=== PATIENT | female | born 1940 | race Caucasian/White ===

== ENCOUNTER → 2017-04-08 | Outpatient (CLI) | payer OTHER | LOC: CIMAGING 11:56 | PROVIDERS: ATTEND Family Medicine | DX: M54.9 Dorsalgia, unspecified (principal); R91.8 Other nonspecific abnormal finding of lung field | CPT/HCPCS: 72070-PO ==

== ENCOUNTER → 2017-04-10 | Outpatient (CLI) | payer OTHER | LOC: CIMAGING 13:35 | PROVIDERS: ATTEND Family Medicine | DX: R91.8 Other nonspecific abnormal finding of lung field (principal) | CPT/HCPCS: 71020-PO ==

== ENCOUNTER → 2017-04-16 | Outpatient (CLI) | payer OTHER ==
[~2017-04-16] MED LIST: IOPAMIDOL (ISOVUE-300) 100 ML BTL ONE
== END ==
LOC: CIMAGING 09:54
PROVIDERS: ATTEND Family Medicine
DX: R91.8 Other nonspecific abnormal finding of lung field (principal); J90 Pleural effusion, not elsewhere classified; E04.1 Nontoxic single thyroid nodule; M89.8X8 Other specified disorders of bone, other site
CPT/HCPCS: 71260-PO; Q9967

== ENCOUNTER 2017-11-22 10:50 | Inpatient (IN) | payer OTHER ==
--- NOTE | 2017-11-22 10:56 | EDPHY ---
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 She arrives by ambulance noting that she has been unable to bear weight has been 6 piercing intractable pain to this area. She was scheduled to have a 4th radiation therapy treatment yesterday however was unable to make it down stairs of her home. She is here with her . She denies new/acute trauma. Denies discoloration. Denies malaise or flu-like symptoms. PRIMARY CARE PROVIDER: REVIEW OF SYSTEMS: A ten point review of systems was performed and is negative with the exception of the items mentioned in the HPI PAST MEDICAL & SURGICAL HISTORY: Adenocarcinoma right lung with metastases SOCIAL HISTORY: Nonsmoker lives with . Splits her time between [place], [place] and [place], [place] PHYSICAL EXAM (Prior to examination, patient consented to physical exam, hands were washed and my usual and customary physical exam procedures followed) 1) GENERAL: Well-developed, well-nourished, alert and oriented. Appears nontoxic 2) HEAD: Normocephalic, atraumatic 3) HEENT: Pupils equal, round, reactive to light bilaterally. Sclera anicteric. 4) NECK: Full range of motion, no meningeal signs. 5) LUNGS: Clear auscultation bilaterally, no wheezes, no rhonchi, no retractions. 6) HEART: Regular rate and rhythm, no murmur, no heave, no gallop. 7) ABDOMEN: No guarding, no rebound, no focal tenderness, negative McBurney's, negative Valero's, negative Rovsing's, negative peritoneal sign, 8) MUSCULOSKELETAL: Left lower extremity: No shortening no malrotation. Tender to palpation left inguinal region reproducible with range of motion of the left lower extremity. Soft compartments. Skin is intact no signs of infection or cellulitis. Fentanyl patch in place. Distal DP PT pulses present and brisk. Soft compartments. Moving all extremities, no focal areas of tenderness, no obvious trauma. No peripheral edema or discoloration. 9) BACK: No CVA tenderness, no midline vertebral tenderness, no fluctuance, no step-off, no obvious trauma, no visual or palpable abnormality. 10) SKIN: No rash, no petechiae. 11) Psychiatric: Patient is oriented X 3, there is no agitation. DIFFERENTIAL DIAGNOSIS: In no particular include but limited to pathologic fracture, chronic pain of malignancy, septic arthritis Constitutional: Initial Vital Signs Temperature (C) 36.8 C 11/22/17 10:50 Heart Rate 87 11/22/17 10:50 Respiratory Rate 16 11/22/17 10:50 Blood Pressure 181/78 H 11/22/17 10:50 O2 Sat (%) 94 11/22/17 10:50 O2 Delivery Mode Room Air O2 (L/minute) 2 Allergies/Adverse Reactions: No Known Allergies Allergy (Unverified 03/25/13 10:02) Home Medications: Medication Instructions Recorded Dexamethasone [Decadron 4 MG (*)] 4 mg PO BID 11/22/17 HYDROcodone/APAP 10/325 [[place] 0.5 tab PO Q4 PRN 11/22/17 10/325 (*)] fentaNYL [Duragesic 25 MCG Patch 25 mcg TD Q72H 11/22/17 (*)] Medical Decision Making - Diagnostics Imaging Results: Imaging Impressions Hip X-Ray 11/22/17 11:07 Impression: Oblique nondisplaced left femoral neck fracture, which may be pathologic. Metastatic lesion right superior pubic ramus. Images reviewed myself ED Course/Re-evaluation: 10:55 a.m.: Patient greeted on arrival by myself and nursing staff. Patient has pain to the left inguinal region. History of radiation therapy to same location and metastases same location. Will obtain x-ray to evaluate for acute osseous abnormality. Denies trauma history. She is unable to bear weight. Anticipate likely hospitalization for pain control. Care of patient under supervision of secondary supervising physician Dr Ocampo with whom I discussed case 11:45 a.m.: Consultation with patient's oncologist Dr. Srinivasan who will consult 11:51 a.m.: Consultation with hospitalistJoanna, admit to Dr. Cesar Easton 12:06 p.m.: Consultation with on-call orthopedics Dr. Pedro Stokes who will consult - Data Points Laboratory Results: Laboratory Results 11/22/17 11:20 11/22/17 11:20 11/22/17 11/22/17 11/22/17 11:20 11:20 11:20 WBC 12.00 10^3/uL H 10^3/uL (3.80-9.50) RBC 4.47 10^6/uL 10^6/uL (4.18-5.33) Hgb 13.2 g/dL g/dL (12.6-16.3) Hct 38.7 % % (38.0-47.0) MCV 86.6 fL fL (81.5-99.8) MCH 29.5 pg pg (27.9-34.1) MCHC 34.1 g/dL g/dL (32.4-36.7) RDW 14.3 % % (11.5-15.2) Plt Count 265 10^3/uL 10^3/uL (150-400) MPV 11.0 fL fL (8.7-11.7) Neut % (Auto) 91.5 % H % (39.3-74.2) Lymph % (Auto) 3.1 % L % (15.0-45.0) [place] % (Auto) 4.3 % L % (4.5-13.0) Eos % (Auto) 0.1 % L % (0.6-7.6) Baso % (Auto) 0.2 % L % (0.3-1.7) Nucleat RBC Rel Count 0.0 % % (0.0-0.2) Absolute Neuts (auto) 10.98 10^3/uL H 10^3/uL (1.70-6.50) Absolute Lymphs (auto) 0.37 10^3/uL L 10^3/uL (1.00-3.00) Absolute Monos (auto) 0.52 10^3/uL 10^3/uL (0.30-0.80) Absolute Eos (auto) 0.01 10^3/uL L 10^3/uL (0.03-0.40) Absolute Basos (auto) 0.02 10^3/uL 10^3/uL (0.02-0.10) Absolute Nucleated RBC 0.00 10^3/uL 10^3/uL (0-0.01) Immature Gran % 0.8 % % (0.0-1.1) Immature Gran # 0.10 10^3/uL 10^3/uL (0.00-0.10) RBC/WBC/PLT Morphology TNP Platelet Estimate TNP PT 13.3 SEC SEC (12.0-15.0) INR 0.99 (0.83-1.16) APTT 22.7 SEC L SEC (23.0-38.0) Sodium 142 mEq/L mEq/L (135-145) Potassium 3.8 mEq/L mEq/L (3.3-5.0) Chloride 108 mEq/L mEq/L (97-110) Carbon Dioxide 23 mEq/l mEq/l (22-31) Anion Gap 11 mEq/L mEq/L (8-16) BUN 17 mg/dL mg/dL (7-23) Creatinine 0.5 mg/dL L mg/dL (0.6-1.0) Estimated GFR > 60 Glucose 106 mg/dL H mg/dL (70-100) Calcium 9.6 mg/dL mg/dL (8.5-10.4) Medications Given: Discontinued Medications Hydromorphone HCl (Dilaudid) 1 mg IVP EDNOW ONE Stop: 11/22/17 11:24 Last Admin: 11/22/17 11:37 Dose: 1 mg Ondansetron HCl (Zofran) 4 mg IVP EDNOW ONE Stop: 11/22/17 11:24 Last Admin: 11/22/17 11:36 Dose: 4 mg Departure - Departure Disposition: [facility] Inpatient Acute Clinical Impression: Pathologic fracture of neck of left femur Qualifiers: Encounter type: initial encounter Qualified Code(s): M84.452A - Pathological fracture, left femur, initial encounter for fracture Condition: Fair
[2017-11-22] MEDS ORDERED: ONDANSETRON 4 MG/2 ML VIAL IVP ONE (11:23)
[2017-11-22] MEDS ORDERED: HYDROmorphONE/DILAUDID 1 MG/ML INJ IVP ONE (11:23)
[2017-11-22 12:21] LABS: PLATELET COUNT 265 10^3/uL (150-400)
[2017-11-22 12:32] LABS: INR 0.99 (0.83-1.16); PROTIME(PATIENT) 13.3 SEC (12.0-15.0)
[2017-11-22] MEDS ORDERED: ONDANSETRON DISINTEGRATING 4 MG TAB PO PRN (13:41)
[2017-11-22] MEDS ORDERED: ACETAMINOPHEN 325 MG TAB PO PRN (13:41)
[2017-11-22] MEDS ORDERED: ONDANSETRON 4 MG/2 ML VIAL IVP PRN (13:41)
[2017-11-22] MEDS ORDERED: HYDROmorphONE/DILAUDID 1 MG/ML INJ IVP PRN (13:41)
[2017-11-22] MEDS ORDERED: fentaNYL 25 MCG PATCH TD SCH (13:45)
[2017-11-22] MEDS ORDERED: NS 1,000 ML IV SCH (13:45)
--- NOTE | 2017-11-22 17:08 | GHP ---
[f rep st] HISTORY AND PHYSICAL DATE OF ADMISSION: 11/22/2017 ONCOLOGIST: Dr. Alexx Srinivasan PRIMARY CARE: Based in [place], [place]. CHIEF COMPLAINT: Left femoral neck fracture. HISTORY OF PRESENT ILLNESS: Ms. Ahn is a pleasant 77-year-old female with a past medical history of lung adenocarcinoma with metastatic disease, who had recently been undergoing radiation to metasta tic lesions in the left hip area. She presented to the [facility] emergency room wit h complaints of left hip pain. Imaging revealed the presence of a left femoral neck fracture. Consu ltation was made with patient's oncologist, Dr. Srinivasan, as well as Dr. Stokes with Orthopedic Sur[facility]. I reviewed the case with Dr. Stokes and tentative plan is for surgical intervention tomorrow. The patient has not had any complaints of chest pains or difficulty breathing, and really no other ph ysical complaints at this time. She primarily lives in [place] approximately 6 months out of the [facility]. Her primary home is in [place], [place]. PAST MEDICAL HISTORY: 1. Non-small cell lung carcinoma, adenocarcinoma, metastatic. 2. Dementia. PAST SURGICAL HISTORY: Esophageal dilation. HOME MEDICATIONS: 1. Fentanyl patch 25 mcg patch every 72 hours. 2. Hydrocodone/acetaminophen 10/325 one tablet every 4 hours as needed. 3. Dexamethasone 4 mg twice a day. FAMILY HISTORY: Mother is . She from dementia. Father is also . He from cardiac related complications. SOCIAL HISTORY: Patient is a lifelong nonsmoker. She is currently . She has 1 son and 1 raman ghter. Power of title attorney would be her . Code status was reviewed during this admission, and the patient is a do not attempt resuscitation cod e status. REVIEW OF SYSTEMS: CONSTITUTIONAL: No complaints of any fevers or chills. ENT: No recent upper re spiratory illnesses. CARDIOVASCULAR: No complaints of any chest pains, palpitations, or syncopal ep isodes. RESPIRATORY: No complaints of any shortness of breath or productive cough. GASTROINTESTINA L: No nausea, vomiting, diarrhea, or constipation. GENITOURINARY: No report of any difficulty with urination. NEUROLOGIC: No complaints of any headaches or focal weakness. HEMATOLOGIC: No history of any prior deep vein thrombosis or pulmonary embolism. PSYCHIATRIC: No history of anxiety or dep ression. ENDOCRINE: No polyuria or heat intolerance. SKIN: No new skin rashes reported. MUSCULOS KELETAL: Other than the left hip pain, no other joint pain complaints. PHYSICAL EXAM: VITAL SIGNS: Temperature 36.7, blood pressure is 179/82, and patient's repor ts she normally has low normal blood pressures. Heart rate 79, respirations 12, satting 98% on 2 L n ran cannula. GENERAL: Patient appears comfortable. She is awake, alert, conversant, in no acute d istress. HEENT: Extraocular movements appear intact. No scleral icterus is noted. NECK: Supple. No adenopathy appreciated. No thyroid enlargement noted. CHEST: Clear on auscultation with normal respiratory effort. HEART: Regular rate and rhythm. No murmurs are appreciated. ABDOMEN: Soft, nontender, nondistended. : No Nelson catheter in place. EXTREMITIES: No significant pitting quoc a. MUSCULOSKELETAL: No calf pain with palpation. NEUROLOGIC: Cranial nerves 2-12 appear grossly i ntact with 5/5 strength in upper extremities. Lower extremity strength testing deferred in light of fracture. LABORATORY DATA: White blood cell count is 12, hemoglobin 13, platelets pending. Sodium 142, potass ium 3.8, chloride 108, bicarb is 23, BUN 17, creatinine 0.5, glucose 107. INR 0.99, PTT is 22. ASSESSMENT/PLAN: 1. Left hip pain, currently appears well controlled if she is immobile. We do have her fentanyl pat ch continued. We will schedule hydrocodone/acetaminophen on top of that as needed. We do have IV Di laudid as well for any severe or breakthrough pain. 2. Left femoral neck fracture. Dr. Stokes with Orthopedic Surgery has been consulted. I touched base with him over the phone today and tentative plan is for surgical intervention tomorrow. I have recommended a dose of Lovenox now with the notation not to administer after 2300 tonight. 3. Leukocytosis, possibly reactive. Monitor for any fevers. We will plan on rechecking tomorrow mo rning. 4. Non-small cell lung carcinoma. This is of the right lung and widely metastatic. Biopsy shows an adenocarcinoma. The patient just recently started seeing Dr. Srinivasan while here in [place] where she lives part of the year. The tentative plan for treatment has been radiation therapy. She has decli laly chemotherapy. I reviewed the admission today with Dr. Srinivasan as well. 5. Deep venous thrombosis prophylaxis. Heparin is detailed above. 6. Disposition: I will admit her under inpatient status considering the anticipated surgery and nee d for IV pain control. /[id number]/MODL
--- NOTE | 2017-11-22 17:13 | GCON ---
[f rep st] CONSULTATION MEDICAL ONCOLOGY CONSULTATION. The patient is a very pleasant 77-year-old female who lives in [place] but babin in [place], whom I saw for the first time approximately 2 weeks ago. To review, late in 2016, she developed a dry cough and was found to have a right pleural effusion. Thoracentesis showed malignant cells consistent wit h an adenocarcinoma of the lung, and she was found to have a right infrahilar mass consistent with a primary. There was mild uptake in mediastinal nodes and there were multiple hypermetabolic osseous m etastases, the most worrisome at T9 where there was extensive soft tissue and epidural component. Roberto Carlos ma was treated with radiotherapy in [place] to T8, T11, left scapula, right pubis and hip, and left acet abulum. This seemed to control her pain. However, when she came to [place], she noted increasing p ain. A PET scan as of 10/30/2017 showed increasing osseous metastases in the skull, thorax, lumbar s pine, left shoulder, ribs, sacrum, acetabulum, and proximal femurs. Her malignant pleural cells did not have an EGFR ALK mutation. She has been receiving monthly Zometa. She has been very clear that she did not desire any more aggressive therapy. She did see Dr. Alexx Weiss of Radiation Therapy , who started palliative radiotherapy to her left hip and acetabulum about 3 days ago. However, she has had increasing and severe hip pain. She came to the emergency room today, where a plain film juan wed an oblique nondisplaced left femoral neck fracture, possibly pathologic. She was hospitalized fo r further evaluation. PAST MEDICAL HISTORY: She has otherwise been quite healthy. REVIEW OF SYSTEMS: Primarily positive for hip pain. She has some anorexia. She is postmenopausal. She is accompanied by her . She has a daughter who is a physician in [facility]. PHYSICAL EXAMINATION: VITAL SIGNS: Blood pressure 179/82, temperature 98.1. HEENT: She is not ict jennifer. LYMPH NODES: I detect no cervical or supraclavicular adenopathy. LUNGS: Lung sounds are dim inished. CARDIAC: Exam is unremarkable. ABDOMEN: Benign. EXTREMITIES: She complains of pain in her left hip area. Extremities show no edema. NEUROLOGIC: She is pleasant but has some deficits in terms of short-term memory. LABORATORY DATA: White count is 12,000, neutrophils 91.5%. Basic chemistry panel is unremarkable. MEDICATIONS ON ADMISSION: Include a fentanyl patch 25 mcg/h, p.r.n. Dilaudid. IMPRESSION: Patient with metastatic lung carcinoma, presenting with a pathologic fracture of the lef t femoral neck. She has been hospitalized. Orthopedic consultation has been obtained, and we will d iscuss treatment as noted. She does not desire aggressive systemic treatment of her lung carcinoma. Our service will follow with you. /[id number]/MODL
--- NOTE | 2017-11-22 17:25 | PDMN ---
Medical Necessity Medical necessity: C/M review: patient meets INPT criteria under [facility] Musculoskeletal disease GRG (Pathological fracture, left femur, initial encounter for fracture): Acute left femoral neck fracture seen on xray, left hip pain, leukocytosis, likely reactive, WBC 12.00 requiring Oncology consult, Orthopedic consult, planned tentative 11/23/2017 surgical intervention, ongoing IV fluids, pain management - fentanyl patch continues, oral Tylenol and IV Dilaudid as needed, comorbid non-small cell lung carcinoma of the right lung and is widely metastatic, including metastatic lesions in left hip region recently treated with radiation therapy, history of dementia. MD anticipates > 2 MN LOS for ongoing med nec for eval and [place] of above. Patient is Medicare Advantage which follows guidelines CMS puts forth.
[2017-11-22] MEDS: HYDROCODONE/APAP 5/325 TAB PO PRN (20:55)
[2017-11-22] MEDS: DEXAMETHASONE 4 MG TAB PO SCH (20:56)
[2017-11-22] MEDS: HEPARIN 5,000 UNIT/0.5 ML INJ SC SCH (20:56)
--- NOTE | 2017-11-22 22:49 | GCON ---
[f rep st] CONSULTATION DATE OF CONSULTATION: 11/22/2017 REASON FOR CONSULTATION: Pathologic left femoral neck fracture. HPI: Luma is a 77-year-old female, who presented today in the emergency room with increasing le ft hip pain and difficulty bearing weight. She has lung adenocarcinoma and has recently returned to [place] about 2 weeks ago. She spends most of the year in [place], [place] and then babin here in [facility]. She is here with her . She has seen Dr. Srinivasan from Oncology who was following her al srinivas and they are not doing any systemic therapy other than radiation therapy for pain control. She h as multiple metastatic sites of the cancer. On bone scan she does have a left acetabular fracture bu t now appears to have a left femoral neck lesion, however, on today's x-ray she does have a lucency c onsistent with metastatic lesion. PRIOR MEDICAL HISTORY: 1. Adenocarcinoma metastatic lung. 2. Early dementia. PRIOR SURGICAL HISTORY: None. HOME MEDICATIONS: Fentanyl patch, Hoffman 10/325, dexamethasone. SOCIAL HISTORY: She is . Two children. Her daughter is a family physician in [place]. he does not smoke. Does not drink alcohol. REVIEW OF SYSTEMS: Other than left hip pain. No shortness of breath or chest pain. PHYSICAL EXAM: VITAL SIGNS: Blood pressure 170/61, heart rate 76, respiratory rate 16, temperature 36.6, oxygen saturation 98% on 2 L. GENERAL: Alert and oriented x3. is at her bedside. HE ENT: Normocephalic, atraumatic. Extraocular muscles intact. NECK: Supple. There is no lymphadeno doron. No JVD. CHEST: Clear to auscultation. HEART: Regular rate and rhythm. ABDOMEN: Soft, nontender, nondistended. EXTREMITIES: Exam focuse d on left hip. She has pain with any movement, both active and passively hip or upper leg. Lower le g compartment is soft without tenderness. She has 1+ dorsalis pedis, posterior tibial pulses. Ankle dorsiflexion plantar flexion is good at 4+/5. X-RAYS: 2 views of the hip taken earlier today at the hospital show a left femoral neck fracture. T here appears to be a lytic lesion in the right superior rami as well. ASSESSMENT: Pathologic fracture left femoral neck. PLAN: Francesca and her spent 15 minutes [id number] time reviewing treatment options . I think the best course of action would be a long femoral intramedullary nail to fix the femoral n ying fracture as well as stabilize the remainder of the femur. This was described in detail with her. I also reviewed this on the phone with their daughter. They have agreed that they want to proceed with this. We will plan on surgery in the morning. We will keep her n.p.o. after midnight tonight. She is scheduled to get a dose of Lovenox, and that is fine, we will do that tomorrow morning. We w ill continue the home medications for pain control which seems to be working. All their questions we re answered. Our plan will be for surgery in the morning. /[id number]/MODL
[2017-11-23 04:30] LABS: PLATELET COUNT 207 10^3/uL (150-400)
[2017-11-23] MEDS: HEPARIN 5,000 UNIT/0.5 ML INJ SC SCH (04:51)
--- NOTE | 2017-11-23 07:04 | PDANEPAE ---
ANE History of Present Illness 77 yo female with non small cell adenocarcinoma of the lung with L hip bone mets presents with pathologic fracture of L hip. ANE Past Medical History - Cardiovascular History Hx Hypertension: No Hx Arrhythmias: No Hx Chest Pain: No Hx Coronary Artery / Peripheral Vascular Disease: No Hx CHF / Valvular Disease: No Hx Palpitations: No - Pulmonary History Hx COPD: No Hx Asthma/Reactive Airway Disease: No Hx Oxygen in Use at Home: No Hx Sleep Apnea: No Sleep Apnea Screening Result - Last Documented: Negative - Endocrine History Hx Diabetes: No Hypothyroid: No Obesity: no - Renal History Hx Renal Disorders: No - Liver History Hx Hepatic Disorders: No - Cancer History Hx Cancer: Yes Cancer History Comment: adenocarcinoma of lung with bony mets - GI History Hx Gastrointestinal Disorders: Yes Gastrointestinal History Comment: esophageal stricture s/p dilation - Other Health History Other Health History: DNR status - Chronic Pain History Chronic Pain: Yes (on Fentanyl patch + Glennie) - Surgical History Prior Surgeries: esophageal dilation ANE Review of Systems Review of Systems: - Systems Constitutional: Reports: no symptoms Muscolosketal: Reports: joint pain (L hip/groin pain) ANE Patient History - Allergies Allergies/Adverse Reactions: No Known Allergies Allergy (Unverified 03/25/13 10:02) - Home Medications Home Medications: Dexamethasone [Decadron 4 MG (*)] 4 mg PO BID 11/22/17 [Last Taken Unknown] HYDROcodone/APAP 10/325 [Glennie 10/325 (*)] 0.5 tab PO Q4 PRN 11/22/17 [Last Taken Unknown] fentaNYL [Duragesic 25 MCG Patch (*)] 25 mcg TD Q72H 11/22/17 [Last Taken ] - NPO status NPO Since - Liquids (Date): 11/23/17 NPO Since - Liquids (Time): 00:00 NPO Since - Solids (Date): 11/23/17 NPO Since - Solids (Time): 00:00 - Anes Hx Anes Hx: no prior problems - Smoking Hx Smoking Status: Former smoker Marijuana use: No - Alcohol Use Alcohol Use: None - Family Anes Hx Family Anes Hx: neg - N/A ANE Labs/Vital Signs - Labs Result Diagrams: 11/23/17 04:00 11/23/17 04:00 - Vital Signs Blood Pressure: 160/81 Heart Rate: 70 Respiratory Rate: 14 O2 Sat (%): 95 Height: 160.02 cm Weight: 45.569 kg ANE Physical Exam - Airway Neck exam: decreased ROM Mallampati Score: Class 2 Mouth exam: normal dental/mouth exam - Pulmonary Pulmonary: clear to auscultation - Cardiovascular Cardiovascular: regular rate and rhythym - ASA Status ASA Status: IV ANE Anesthesia Plan Anesthesia Plan: general endotracheal anesthesia
[2017-11-23] MEDS ORDERED: CEFAZOLIN 1 GM/DEXTROSE/50 ML BAG IV ONE (08:07)
[2017-11-23] MEDS ORDERED: fentaNYL 100 MCG/2 ML INJ ONE ×4 (08:12→10:43)
[2017-11-23] MEDS ORDERED: LIDOCAINE 2% 100 MG/5 ML SYR ONE (08:12)
[2017-11-23] MEDS ORDERED: DEXAMETHASONE 4 MG/ML VIAL ONE (08:12)
[2017-11-23] MEDS ORDERED: ROCURONIUM 100 MG/10 ML VIAL ONE (08:12)
[2017-11-23] MEDS ORDERED: PROPOFOL/EMULSION 500 MG/50 ML BOTTLE IV ONE (08:13)
[2017-11-23] MEDS ORDERED: fentaNYL 25 MCG PATCH TD SCH (08:15)
[2017-11-23] MEDS ORDERED: fentaNYL 25 MCG PATCH TD ONE (08:30)
[2017-11-23] MEDS: BUPIVACAINE 0.5% 30 ML SDV ONE ×2 (09:06→10:13)
[2017-11-23] MEDS: EPINEPHrine 1 MG/ML INJ ONE ×2 (09:06→10:13)
[2017-11-23] MEDS ORDERED: ONDANSETRON 4 MG/2 ML VIAL ONE (09:23)
[2017-11-23] MEDS ORDERED: LR 500 ML IV PRN (09:45)
[2017-11-23] MEDS ORDERED: NALOXONE HCL 0.4 MG/ML INJ IVP PRN (09:45)
[2017-11-23] MEDS ORDERED: oxyCODONE IR 5 MG TAB PO PRN (09:45)
[2017-11-23] MEDS ORDERED: PROMETHAZINE HCL 25 MG/ML INJ IVP PRN (09:45)
--- NOTE | 2017-11-23 10:07 | POSTOPPROG ---
Post Op Note Date of Operation: 11/23/17 Surgeon: Pedro Stokes Anesthesiologist: carlo Anesthesia: GET(General Endotracheal) Pre-op Diagnosis: pathologic fx left femoral neck fracture Post-op Diagnosis: same Procedure: lt IMN femur Inf/Abcess present in the surg proc area at time of surgery?: No EBL: 50-100 Complications: none
--- NOTE | 2017-11-23 10:10 | ASMTCMCOM ---
CM Note CM Note Notes: Chart reviewed. 77 year old female with history of Lung cancer and metastatic disease admitted via ED with pathological fracture of left femoral neck. She is to undergo surgical pinning today. Needs TBD at this time. CM to follow. Plan : TBD Date Signed: 11/23/2017 10:09 AM Electronically Signed By:Berna Rodriguez RN
--- NOTE | 2017-11-23 10:13 | POSTANESTH ---
Post Anesthetic Evaluation Cardiovascular Status: Similar to Pre-Op Cond, Other, See Comment (Pt has persistently high BP, though no h/o HTN reported) Respiratory Status: Normal, Stable Level of Consciousness/Mental Status: Can Participate in Eval, Mildly Sleepy, Arousable Pain Control: Adequate, Prn Tx Ordered (Small amount of pain in hip at this time per pt.) Nausea/Vomiting Control: Adequate, Prn Tx Ordered Complications Possibly Related to Anesthesia: None Noted
[2017-11-23] MEDS: fentaNYL 100 MCG/2 ML INJ IVP PRN ×4 (10:27→11:03)
[2017-11-23] MEDS ORDERED: oxyCODONE IR 5 MG TAB ONE (10:42)
--- NOTE | 2017-11-23 11:13 | SOAPPROG ---
SOAP Progress Note Assessment/Plan: Assessment: 1. Lung cancer metastatic 2. Pathologic fx l hip, in surgery this am Plan:Rehab post surgery, possibly resume RT outpt 11/23/17 11:11 Objective: Vital Signs Temp Pulse Resp BP Pulse Ox 97.0 F 70 23 H 189/96 H 99 11/23/17 11:07 11/23/17 08:07 11/23/17 11:02 11/23/17 11:02 11/23/17 11:02 Laboratory Results 11/23/17 04:00 11/23/17 04:00 11/22/17 11/23/17 11/24/17 05:59 05:59 05:59 Intake Total 1825 150 Output Total 1270 300 Balance 555 -150 PT 13.3 SEC (12.0-15.0) 11/22/17 11:20 INR 0.99 (0.83-1.16) 11/22/17 11:20 ICD10 Worksheet Patient Problems: Problems Problem Status Onset Pathologic fracture of neck of left femur Acute
--- NOTE | 2017-11-23 12:07 | GOP ---
[f rep st] OPERATIVE REPORT DATE OF OPERATION: 11/23/2017 SURGEON: Pedro Stokes MD ANESTHESIA: General. ANESTHESIOLOGIST: Dr. Sauer. PREOPERATIVE DIAGNOSIS: Pathologic fracture, left femoral neck. POSTOPERATIVE DIAGNOSIS: Pathologic fracture, left femoral neck. PROCEDURE PERFORMED: Intramedullary nail left femur. FINDINGS: ESTIMATED BLOOD LOSS: Minimal. INDICATIONS: The patient is a 77-year-old female with metastatic lung cancer who developed a patholo gic fracture of left femoral neck. She was admitted through the emergency department. Decision was made to proceed with intramedullary nailing of the femur to stabilize both the fracture and the remai nder of the femur. DESCRIPTION OF PROCEDURE: After appropriate informed consent was obtained, patient was taken to the operating room, placed supine on the operating table. Time-out was performed. Patient was identifie d correct site was identified and matched to the radiographs available in room. She received a gram Ancef preoperatively. Following the induction of general endotracheal tube anesthesia, she was posit ioned on the fracture table with all bony prominences well padded. Left lower extremity was placed i n a traction boot. Right lower extremity was placed in a well-padded well leg ardon. Fluoroscopy w as brought in. Fracture was not displaced. We then prepped the left hip in the usual sterile fashio n. Using our starting pin, I got our starting position on the tip of the greater trochanter. Drilled th at into the femoral canal and then used our starting reamer to enter the femoral canal. We then ream ed up to a size 12-1/2 and placed an 11 x 400 nail. This was tapped into place. This position was c onfirmed with AP and lateral fluoroscopic imaging. Using the extramedullary guide, we drilled our guide pin into the head and neck. I confirmed its pos ition on both AP and lateral fluoroscopic images. Drilled both cortices and then placed our spiral b lade, tapped it into place. Then, using perfect [place] technique using fluoroscopy, we placed 1 dist al locking screw with good bony purchase. Final imaging was obtained, which showed satisfactory redu ction of the fracture and positioning of the hardware. Wounds were all irrigated. The wound was closed with 0 Vicryl, 2-0 Vicryl, and katerina. Sterile marlon ssing was applied. The patient was awakened from anesthesia, taken to the recovery room in satisfact ory condition. There were no immediate intraoperative complications. COMPLICATIONS: None. DRAINS: None. IMPLANTS USED: Synthes long TFN nail, 12 x 400. /[id number]/MODL
[2017-11-23] MEDS: D5W 1/2 NS W/ 20 KCl/L 1,000 ML IV SCH ×2 (12:21→21:42)
[2017-11-23] MEDS: DEXAMETHASONE 4 MG TAB PO SCH ×2 (12:21→20:45)
[2017-11-23] MEDS: HYDROCODONE/APAP 5/325 TAB PO PRN ×2 (12:23→20:44)
[2017-11-23] MEDS ORDERED: hydrALAZINE 20 MG/ML VIAL IVP PRN (13:22)
--- NOTE | 2017-11-23 13:37 | HOSPPROG ---
Hospitalist Progress Note Assessment/Plan: Subjective Follow-up on elevated blood pressure readings and left hip fracture. Patient had surgery this morning for her left hip fracture. No postoperative complications other than blood pressures were running high. Her states her blood pressures typically run with systolics in the 120s to 130s. I assured them that I would data as needed IV pain medication for systolic blood pressures over 150. We discussed that we would do this for now rather than starting any daily oral antihypertensives. Pain seems reasonably well controlled postoperatively. Otherwise no complaints. Objective Vital signs Temperature 36.6 blood pressure 183/88 heart rate 85 respirations 16 satting 96 % 2 and 0.5 L nasal cannula Physical exam General-patient awake alert conversant no acute distress Lungs-normal respiratory effort Abdomen-nondistended -no Nelson catheter in place Extremities-compression devices in place Labs as detailed below Assessment and Plan 1. Left hip pain-currently pillars were controlled will continue with current acetaminophen for mild pain and hydrocodone for moderate pain and IV pain medications for severe breakthrough pain. She does have a fentanyl patch that she uses at baseline which we have continued. 2. Left femoral neck fracture-patient is status post surgery now. Continue work with PT and OT. 3. Leukocytosis-resolved. Suspect stress response. 4. Non-small cell lung carcinoma-appreciate Dr. Srinivasan assistance on the case. Radiation treatment on hold at this time. 5. DVT prophylaxis-I have ordered Lovenox to start tomorrow morning. 6. Disposition-we'll see how she does in the coming days with PT and OT and then make a determination on placement. Objective: Vital Signs Temp Pulse Resp BP Pulse Ox 36.6 C 85 16 183/88 H 96 11/23/17 12:48 11/23/17 12:48 11/23/17 12:48 11/23/17 12:48 11/23/17 12:48 Laboratory Results 11/23/17 04:00 11/23/17 04:00 11/22/17 11/23/17 11/24/17 05:59 05:59 05:59 Intake Total 1825 150 Output Total 1270 600 Balance 555 -450 PT 13.3 SEC (12.0-15.0) 11/22/17 11:20 INR 0.99 (0.83-1.16) 11/22/17 11:20 ICD10 Worksheet Patient Problems: Problems Problem Status Onset Pathologic fracture of neck of left femur Acute
[2017-11-23] MEDS ORDERED: POLYETHYLENE GLYCOL 3350 17 GM PKT PO PRN (19:50)
[2017-11-23] MEDS ORDERED: BISACODYL 10 MG SUPP PR PRN (19:50)
[2017-11-23] MEDS ORDERED: MAGNESIUM HYDROXIDE 30 ML UDCUP PO PRN (19:50)
[2017-11-23] MEDS ORDERED: LACTULOSE 20 GM/30 ML UDCUP PO PRN (19:50)
[2017-11-23] MEDS: SENNOSIDES/DOCUSATE SODIUM TAB PO SCH (20:45)
[2017-11-24 05:00] LABS: PLATELET COUNT 210 10^3/uL (150-400)
--- NOTE | 2017-11-24 08:10 | SOAPPROG ---
SOAP Progress Note Assessment/Plan: Assessment: Plan: 11/24/17 08:09 POD#1 IMN LT femur 50% weightbearing LLE resume lovenox Subjective: pain better since surgery Objective: Dressing c/d/i leg lengths equal calf soft 5/5 df/pf 1+ dp/tp pulses Vital Signs Temp Pulse Resp BP Pulse Ox 36.7 C 85 18 147/67 H 93 11/24/17 07:38 11/24/17 07:38 11/24/17 07:38 11/24/17 07:38 11/24/17 07:38 Laboratory Results 11/24/17 04:28 11/24/17 04:28 11/23/17 11/24/17 11/25/17 05:59 05:59 05:59 Intake Total 1825 1084 Output Total 1270 1500 200 Balance 555 -416 -200 PT 13.3 SEC (12.0-15.0) 11/22/17 11:20 INR 0.99 (0.83-1.16) 11/22/17 11:20 ICD10 Worksheet Patient Problems: Problems Problem Status Onset Pathologic fracture of neck of left femur Acute
[2017-11-24] MEDS: D5W 1/2 NS W/ 20 KCl/L 1,000 ML IV SCH (10:04)
[2017-11-24] MEDS: DEXAMETHASONE 4 MG TAB PO SCH ×2 (10:04→20:36)
[2017-11-24] MEDS: ENOXAPARIN 40 MG/0.4 ML SYR SC SCH (10:04)
[2017-11-24] MEDS: SENNOSIDES/DOCUSATE SODIUM TAB PO SCH ×2 (10:04→20:37)
[2017-11-24] MEDS: HYDROCODONE/APAP 5/325 TAB PO PRN (13:36)
--- NOTE | 2017-11-24 17:12 | HOSPPROG ---
Hospitalist Progress Note Assessment/Plan: Subjective Follow-up on left femoral neck fracture and elevated blood pressure readings No acute events overnight. Patient seems to doing reasonably well after her surgery yesterday. Pain seems well controlled with current pain regimen and place. Blood pressure is well seem to have come down from where they were previously. Objective Vital signs Temperature 36.5 blood pressure 139/64 heart rate 82 respirations 16 satting 93 % 2 L nasal cannula Physical exam General-patient is sitting in a chair at the bedside no acute distress eating a snack Heart-regular rate and rhythm no murmurs noted Lungs-normal respiratory effort clear on auscultation Abdomen-nondistended normal bowel sounds -no Nelson catheter in place Extremities-no significant pitting edema or calf pain with palpation. Labs as detailed below Assessment and plan 1. Left hip pain-currently appears well controlled with the current pain regimen. Continue with the CT minute been, hydrocodone, and hydromorphone IV. She does have a fentanyl patch which she has used prior to coming into the hospital for her cancer related pain. Patient is on a bowel regimen. 2. Left femoral neck fracture-patient is status post surgery yesterday. Continue work with PT and OT and see how she does in the coming days. 3. Non-small cell lung carcinoma-appreciate Oncology assistance and following along. Radiation treatments are to hold at this time. She was receiving radiation treatments to her left hip region. 4. DVT prophylaxis-Lovenox. 5. Disposition-patient would like to return home with home PT if able. Objective: Vital Signs Temp Pulse Resp BP Pulse Ox 36.9 C 83 16 137/64 H 94 11/24/17 16:05 11/24/17 16:05 11/24/17 16:41 11/24/17 16:41 11/24/17 16:41 Laboratory Results 11/24/17 04:28 11/24/17 04:28 11/23/17 11/24/17 11/25/17 05:59 05:59 05:59 Intake Total 1825 1084 1500 Output Total 1270 1500 400 Balance 555 -416 1100 PT 13.3 SEC (12.0-15.0) 11/22/17 11:20 INR 0.99 (0.83-1.16) 11/22/17 11:20 ICD10 Worksheet Patient Problems: Problems Problem Status Onset Pathologic fracture of neck of left femur Acute
[2017-11-25] MEDS: HYDROCODONE/APAP 5/325 TAB PO PRN ×4 (00:54→17:06)
[2017-11-25 05:01] LABS: PLATELET COUNT 184 10^3/uL (150-400)
[2017-11-25] MEDS: DEXAMETHASONE 4 MG TAB PO SCH (10:38)
[2017-11-25] MEDS: ENOXAPARIN 40 MG/0.4 ML SYR SC SCH (10:38)
[2017-11-25] MEDS: SENNOSIDES/DOCUSATE SODIUM TAB PO SCH (10:38)
--- NOTE | 2017-11-25 11:26 | PDIAF ---
- Diagnosis Diagnosis: pathologic hip fracture Code Status: Do Not Resuscitate - Medication Management Discharge Medications: Medications to Continue on Transfer Dexamethasone [Decadron 4 MG (*)] 4 mg PO BID 11/22/17 [Last Taken Unknown] HYDROcodone/APAP 10/325 [[place] 10/325 (*)] 0.5 tab PO Q4 PRN 11/22/17 [Last Taken Unknown] fentaNYL [Duragesic 25 MCG Patch (*)] 25 mcg TD Q72H 11/22/17 [Last Taken ] Dexamethasone [Decadron 4 MG (*)] 4 mg PO BID tab 11/25/17 [Last Taken Unknown] Enoxaparin [Lovenox 40 MG (*)] 40 mg SC DAILY #19 syr 11/25/17 [Last Taken Unknown] Hydrocodone/APAP 5/325 [[place] 5/325 (*)] 0.5 - 1 tab PO Q6H PRN #30 tab [Last Taken Unknown] Polyethylene Glycol 3350 [Miralax 17 gm (*)] 17 gm PO DAILY PRN pkt 11/25/17 [ Last Taken Unknown] Sennosides/Docusate Sodium [Senokot-S] 1 - 2 tab PO BID tab 11/25/17 [Last Taken Unknown] Discharge Medications: Refer to the Discharge Home Medication list for PRN reason. PICC Care - Routine: N/A - Orders Services needed: Home Care, Registered Nurse, Certified College Director, Physical Therapy, Occupational Therapy Home Care Face to Face: I certify that this patient was under my care and that I had the required [id number] encounter meeting the encounter requirements on the discharge day. My findings support the fact that the patient is homebound as defined in Home Care Face to Face Continued: CMS Chapter 7 Medicare Benefits Manual 30.1.1 , The condition of the patient is such that there exists a normal inability to leave home and consequently, leaving home would require a considerable and taxing effort. Diet Recommendation: no restrictions on diet - Follow Up Care Current Providers and Referrals: NONE *PRIMARY CARE P,. [Unknown] - As per Instructions Pedro Stokes MD [Medical Doctor] -
[2017-11-25 12:29] VITALS: BP 129/54
--- NOTE | 2017-11-25 21:06 | GDS ---
[f rep st] DISCHARGE SUMMARY DISCHARGE DIAGNOSES: 1. Left hip fracture status post surgical fixation. 2. Non-small cell lung carcinoma. CONSULTATION: Dr. Pedro Stokes, Orthopedic Surgery. HISTORY: For details, please see history and physical dated November 22, 2017. In brief, Ms Ahn is a 77-year-old female with history of lung cancer who presented to the emergency department with a patho logic left hip fracture. She presented to the hospital for further management. HOSPITAL COURSE: The patient was admitted to the Oncology unit. Orthopedic Surgery consult was jeremy romero, and the patient went to the operating room for pinning of her left femur fracture on November 23. She had previously been receiving radiation for bony metastatic disease to this region. She eflipa l resume outpatient radiation as deemed appropriate by radiation oncologist with whom they will follo w up. Her postop course was uncomplicated. The therapy team deemed her safe for discharge home with home health services. She also has family support with her and daughter present at the [facility]. DISPOSITION: Patient is discharged home with home health care, RN, PT, OT. DISCHARGE MEDICATIONS: Please see [employer] for outpatient medication list. New medications on disch arge include: 1. Lovenox 40 mg subcutaneous daily for a total of 21 days for DVT prophylaxis. 2. [place] 5/325 one-half to one tablet p.o. q.6 hours p.r.n., #30, no refills. 3. MiraLAX 17 grams p.o. daily p.r.n. 4. Senokot one to two tablets p.o. twice daily. 5. She will continue her outpatient Decadron 4 mg p.o. twice daily as well as outpatient fentanyl 25 mcg transdermal q.72h hours. DISCHARGE INSTRUCTIONS: 1. The patient was also instructed 50% weightbearing of the left lower extremity. 2. She will need a followup with Orthopedic Surgery to repeat x-ray in 2 weeks at the office of Dr. Pedro Stokes. She should also follow up with her primary oncologist and radiation oncologist for on going radiation treatment. /[id number]/MODL
[2017-11-26] MEDS ORDERED: fentaNYL 25 MCG PATCH TD SCH (08:30)
--- NOTE | 2017-11-26 11:18 | ASDISCHSUM ---
Discharge Information Plan Status:Home with Home Health Medically Cleared to Leave: Discharge Date:11/25/2017 05:39 PM CM D/C Disposition:Home Health Service ADT D/C Disposition:Home Health Service Projected Discharge Date:11/25/2017 11:00 AM Transportation at D/C: Discharge Delay Reason: Follow-Up Date:11/25/2017 11:00 AM Discharge Slot: Final Diagnosis: Placement Information Referral Type:*Home Health Care Services Referral ID:[id number] Provider Name:[facility] [place] Address 1:[address] Phone Number: Address 2: Fax Number: City:[place] Selection Factors: State:[place] Patient Contact Information Contact Name:RADHAÁNGELA Relationship: Address:[address] City:[place] Alternate Phone: State/Zip Code:[place] [address] Email: Financial Information Financial Class:Medicare Advantage Plans Primary Plan Desc:ANDREW MEDICARE ADV Primary Plan Number:[id number] Secondary Plan Desc: Secondary Plan Number: Assessment Information [facility] CM Progress Note CM Note CM Note Notes: Chart reviewed. 77 year old female with history of Lung cancer and metastatic disease admitted via ED with pathological fracture of left femoral neck. She is to undergo surgical pinning today. Needs TBD at this time. CM to follow. Plan : TBD Date Signed: 11/23/2017 10:09 AM Electronically Signed By:Berna Rodriguez RN Case Management Discharge Plan Note Case Management Discharge Discharge Order Complete? Answers: Yes Patient to Obtain Answers: via Family Medications Transportation Arranged Answers: Family/Friends Faxed Final Orders Answers: Yes Family Notified Answers: Yes Discharge Comments Notes: Pt and and daughter have decided they would like to go home w/[facility] and she will have someone with her 27/01. They felt that unfamiliar environments exacerbates her dementia and that home would be the better option. Her daughter from [facility] is visiting and will stay til Friday. Pt's very able to assist her. [facility] can accept for PT/OT/RN. Spoke w/Diamante who confirmed this and they can even go out daily if is not able to learn to give Lovenox injections. Also spoke w/ about private duty care which he will consider, list of agencies given. Loan closet list and med supply co list given. They will obtain equipment today. Discussed at length w/PT/OT, MD, RN, family, and pt; all in agreement w/dc plan. Orders and info sent to [facility] through [employer] [facility]. Date Signed: 11/25/2017 02:03 PM Electronically Signed By:Dori Mays RN Intervention Information
== END 2017-11-25 17:39 | disposition home health service (06) | DRG 481 ==
LOC: EDUNIT# → OBSVTOIN 11:50 → F1N 12:33
PROVIDERS: ADMIT Internal Medicine; ATTEND Internal Medicine
PROC: 0QS636Z Reposition Right Upper Femur with Intramedullary Internal Fixation Device, Percutaneous Approach (ICD-10-PCS; principal; 2017-11-23 08:00)
DX: M84.552A Pathological fracture in neoplastic disease, left femur, initial encounter for fracture (principal); C34.91 Malignant neoplasm of unspecified part of right bronchus or lung; C79.51 Secondary malignant neoplasm of bone; F03.90 Unspecified dementia, unspecified severity, without behavioral disturbance, psychotic disturbance, mood disturbance, and anxiety
CPT/HCPCS: 96374; 97116-GP; 97162-GP; 97165-GO; 97530-GP; 97535-GO; C1713; C1769; G8978-GP-CJ; G8979-GP-CI; G8987-GO-CJ; G8988-GO-CI; J0171; J0360; J0690; J1100; J1170; J1644; J1650; J2001; J2405; J2704; J3010

== ENCOUNTER → 2017-12-02 | Outpatient (CLI) | payer OTHER | LOC: FIMAGING 15:48 | PROVIDERS: ATTEND Internal Medicine Hematology & Oncology | DX: M89.9 Disorder of bone, unspecified (principal); S72.002D Fracture of unspecified part of neck of left femur, subsequent encounter for closed fracture with routine healing; S32.501D Unspecified fracture of right pubis, subsequent encounter for fracture with routine healing; C34.90 Malignant neoplasm of unspecified part of unspecified bronchus or lung ==

== ENCOUNTER → 2018-01-09 | Outpatient (CLI) | payer OTHER ==
[~2018-01-09] MED LIST changes: -IOPAMIDOL (ISOVUE-300) 100 ML BTL ONE; +LIDOCAINE 1% 300 MG/30 ML SDV ONE
== END ==
LOC: FIMAGING 11:34
PROVIDERS: ATTEND Nurse Practitioner
PROC: 0W993ZZ Drainage of Right Pleural Cavity, Percutaneous Approach (ICD-10-PCS; principal; 2018-01-09)
DX: C34.01 Malignant neoplasm of right main bronchus (principal); J91.8 Pleural effusion in other conditions classified elsewhere

== ENCOUNTER → 2018-01-19 | Outpatient (CLI) | payer OTHER | LOC: FIMAGING 08:38 | PROVIDERS: ATTEND Internal Medicine Hematology & Oncology | DX: C34.90 Malignant neoplasm of unspecified part of unspecified bronchus or lung (principal); M89.9 Disorder of bone, unspecified | CPT/HCPCS: 78306; A9503 ==